=== PATIENT | male | born 1935 | race Caucasian/White ===

== ENCOUNTER → 2019-04-07 09:00 | Outpatient (BNVA) | payer MEDICARE, MEDICAID, SELFPAY | PROVIDERS: Family Provider Family Medicine; PCP Family Medicine; Visit Provider Family Medicine | DX: D50.8 Other iron deficiency anemias (principal) | CPT/HCPCS: 80053; 85025 ==

== ENCOUNTER → 2019-06-30 10:49 | Outpatient (BNVA) | payer MEDICARE, MEDICAID, SELFPAY | PROVIDERS: Family Provider Family Medicine; PCP Family Medicine; Visit Provider Nurse Practitioner Family | DX: E78.5 Hyperlipidemia, unspecified (principal) | CPT/HCPCS: 80053; 80061; 85025 ==

== ENCOUNTER → 2019-07-06 10:46 | Outpatient (BNVA) | payer MEDICARE, MEDICAID, SELFPAY | PROVIDERS: Family Provider Family Medicine; PCP Family Medicine; Visit Provider Family Medicine | DX: R06.02 Shortness of breath (principal); R07.1 Chest pain on breathing; E78.2 Mixed hyperlipidemia; I21.09 ST elevation (STEMI) myocardial infarction involving other coronary artery of anterior wall; I50.9 Heart failure, unspecified | CPT/HCPCS: 71046 ==